=== PATIENT | female | born 1995 | race Caucasian/White ===

== ENCOUNTER 2022-01-20 18:04 | Inpatient (IN) | payer MEDICAID ==
[~2022-01-20] VITALS: Ht 154.9 cm; Wt 81.2 kg
[2022-01-20] MEDS ORDERED: CARBOPROST TROMETHAMINE 250 MCG/ML AMPUL IM PRN (19:30)
[2022-01-20] MEDS ORDERED: METHYLERGONOVINE MALEATE 0.2 MG/ML IM PRN (19:30)
[2022-01-20] MEDS ORDERED: NALOXONE HCL 0.4 MG/ML 1ML VIAL IM PRN (19:30)
[2022-01-20] MEDS ORDERED: LIDOCAINE HCL 1% 10 MG/ML 10ML VIAL INJ SCH (19:45)
[2022-01-20] MEDS ORDERED: DEXT 5%/LR + PITOCIN 20UNITS/L 1,000 ML IV SCH (20:00)
[2022-01-20] MEDS ORDERED: MISOPROSTOL 100MCG TABLET VG SCH (20:00)
[2022-01-20 20:20] LABS: CLARITY URINE CLEAR (CLEAR); COLOR URINE YELLOW (YELLOW); KETONES URINE NEGATIVE (NEGATIVE); LEUKOCYTE ESTERASE URINE 2+ (NEGATIVE); NITRITE URINE NEGATIVE (NEGATIVE); OCCULT BLOOD URINE 1+ (NEGATIVE); PH URINE 6.5 (4.5-8.0); PROTEIN URINE NEGATIVE (NEGATIVE); SPECIFIC GRAVITY URINE 1.007 (1.005-1.030); UROBILINOGEN URINE 0.2 E.U./dL (0.2-1.0)
[2022-01-20 20:20] LABS: BASOPHILS % 0.3 % (0.0-2.0); EOSINOPHILS % 0.3 % (0.0-5.0); HEMATOCRIT. 34.7 % (36.0-48.0); HEMOGLOBIN. 11.8 g/dL (12.0-16.0); LYMPHOCYTES % 11.6 % (20.0-50.0); MEAN CORPUSCULAR HEMOGLOBIN 29.8 pg (28.0-32.0); MEAN CORPUSCULAR VOLUME 87.8 fL (81.0-99.0); MEAN PLATELET VOLUME 9.7 fl (7.4-10.4); MONOCYTES % 7.5 % (2.0-8.0); NEUTROPHILS % 80.3 % (40.0-76.0); PLATELET 228 x1000/uL (130-400); RED BLOOD CELL COUNT 3.95 mill/uL (4.2-5.4); RED CELL DISTRIBUTION WIDTH 14.9 % (11.6-14.6)
[2022-01-20 20:31] LABS: INR 0.9; PARTIAL THROMBOPLASTIN TIME 26.3 sec (23.4-31.0); PROTHROMBIN TIME 9.7 sec (9.6-11.0)
[2022-01-20 20:34] LABS: *AMPHETAMINES SCREEN URINE NEGATIVE (NEGATIVE); *BARBITURATES SCREEN URINE NEGATIVE (NEGATIVE); *BENZODIAZEPINES SCREEN URINE NEGATIVE (NEGATIVE); *COCAINE SCREEN URINE NEGATIVE (NEGATIVE)
[2022-01-20 20:35] LABS: CANNABINOID URINE SCREEN NEGATIVE (NEGATIVE); METHADONE URINE SCREEN NEGATIVE (NEGATIVE); OPIATES URINE SCREEN NEGATIVE (NEGATIVE); PHENCYCLIDINE URINE SCREEN NEGATIVE (NEGATIVE)
[2022-01-20] MEDS: CLINDAMYCIN IN 0.9 % SOD CHLOR 50 ML IV SCH (20:53)
[2022-01-20 20:59] LABS: HEPATITIS B SURFACE ANTIGEN NEGATIVE
[2022-01-20] MEDS: LACTATED RINGERS 1,000 ML IV SCH ×3 (21:14→22:22)
[2022-01-20] MEDS ORDERED: ROPIVACAINE HCL/PF 100ML 100 ML INFIL NR (21:15)
[2022-01-20] MEDS ORDERED: ROPIVACAINE HCL/PF 100ML 100 ML ONE (21:29)
[2022-01-21] MEDS: CLINDAMYCIN IN 0.9 % SOD CHLOR 50 ML IV SCH (04:58)
[2022-01-21] MEDS ORDERED: FENTANYL CITRATE/PF 50MCG/ML 2ML VIAL ONE ×2 (06:40→10:02)
[2022-01-21] MEDS ORDERED: LIDOCAINE HCL 2%/EPINEPHRINE 1:100,000 20 ML VIAL INFIL ONE (07:07)
[2022-01-21] MEDS ORDERED: MORPHINE SULFATE/PF 1MG/ML 10ML AMP ONE (10:02)
[2022-01-21] MEDS ORDERED: OXYTOCIN 10 UNITS/ML 1ML ONE (10:11)
[2022-01-21] MEDS ORDERED: MIDAZOLAM HCL 2 MG/2 ML VIAL ONE (10:23)
[2022-01-21] MEDS ORDERED: PHENYLEPHRINE HCL 10 MG/ML 1ML (IV VIAL) IV ONE (10:24)
[2022-01-21] MEDS ORDERED: KETOROLAC 60MG/2ML VIAL IM ONE (10:39)
[2022-01-21] MEDS ORDERED: DIPHENHYDRAMINE 50MG/ML VIAL ONE (10:39)
[2022-01-21] MEDS ORDERED: DIPHENHYDRAMINE 50MG/ML VIAL IV PRN (11:15)
[2022-01-21] MEDS ORDERED: NALOXONE HCL 0.4 MG/ML 1ML VIAL IV PRN (11:15)
[2022-01-21] MEDS ORDERED: BUTORPHANOL TARTRATE 2 MG/ML VIAL IV PRN (11:15)
[2022-01-21] MEDS ORDERED: DIPHENHYDRAMINE 25MG CAPSULE PO PRN (11:30)
[2022-01-21] MEDS ORDERED: LANOLIN OINT 7GM TUBE TOP PRN (11:30)
[2022-01-21] MEDS ORDERED: ONDANSETRON HCL 4MG/2ML INJ IV PRN (11:30)
[2022-01-21] MEDS ORDERED: BISACODYL 10MG SUPP PR PRN (11:30)
[2022-01-21] MEDS ORDERED: IBUPROFEN 400MG TABLET PO PRN (11:30)
[2022-01-21] MEDS ORDERED: ACETAMINOPHEN WITH CODEINE 300/30MG TABLET PO PRN (11:30)
[2022-01-21] MEDS ORDERED: HEMORRHOIDAL SUPP PR PRN (11:30)
[2022-01-21] MEDS ORDERED: RHO(D) IMMUNE GLOBULIN 300 MCG/SYR IM PRN (11:30)
[2022-01-21] MEDS: DEXT 5%/LR + PITOCIN 20UNITS/L 1,000 ML IV SCH ×2 (12:57→20:52)
[2022-01-21 13:30] VITALS: BP 101/57
[2022-01-21 15:27] VITALS: BP 93/57
[2022-01-21] MEDS: SIMETHICONE 80MG TABLET CHEW PO SCH ×2 (17:44→22:22)
[2022-01-21] MEDS: MAGNESIUM/ALUMINUM HYDROXIDE/SIMETHICONE 30ML UDC PO SCH (17:44)
[2022-01-21] MEDS: KETOROLAC 30MG/ML VIAL IV SCH ×2 (17:45→23:26)
[2022-01-21 20:00] VITALS: BP 91/53
[2022-01-21 23:30] VITALS: BP 101/55
[2022-01-22 04:20] VITALS: BP 106/61
[2022-01-22] MEDS ORDERED: KETOROLAC 30MG/ML VIAL IV SCH (05:22)
[2022-01-22] MEDS: KETOROLAC 30MG/ML VIAL IV SCH (05:28)
[2022-01-22 07:38] LABS: BASOPHILS % 0.1 % (0.0-2.0); EOSINOPHILS % 0.4 % (0.0-5.0); HEMATOCRIT. 29.8 % (36.0-48.0); HEMOGLOBIN. 10.2 g/dL (12.0-16.0); LYMPHOCYTES % 7.3 % (20.0-50.0); MEAN CORPUSCULAR HEMOGLOBIN 30.2 pg (28.0-32.0); MEAN CORPUSCULAR VOLUME 88.7 fL (81.0-99.0); MEAN PLATELET VOLUME 9.2 fl (7.4-10.4); MONOCYTES % 7.7 % (2.0-8.0); NEUTROPHILS % 84.5 % (40.0-76.0); PLATELET 167 x1000/uL (130-400); RED BLOOD CELL COUNT 3.36 mill/uL (4.2-5.4); RED CELL DISTRIBUTION WIDTH 14.8 % (11.6-14.6)
[2022-01-22 08:00] VITALS: BP 83/50
[2022-01-22] MEDS: MAGNESIUM/ALUMINUM HYDROXIDE/SIMETHICONE 30ML UDC PO SCH ×4 (09:03→21:15)
[2022-01-22] MEDS: SIMETHICONE 80MG TABLET CHEW PO SCH ×4 (09:04→21:15)
[2022-01-22] MEDS: FERROUS SULFATE 325MG TABLET PO SCH ×3 (09:04→18:01)
[2022-01-22] MEDS: PRENATAL VIT/FE FUMARATE/FA TABLET PO SCH (09:04)
[2022-01-22] MEDS: IBUPROFEN 800MG TABLET PO PRN ×2 (13:06→20:00)
[2022-01-22 16:00] VITALS: BP 102/56
[2022-01-22 19:30] VITALS: BP 95/50
[2022-01-22] MEDS: DOCUSATE SODIUM 100MG CAPSULE PO SCH (21:15)
[2022-01-23 04:00] VITALS: BP 100/61
[2022-01-23] MEDS: IBUPROFEN 800MG TABLET PO PRN ×2 (04:40→17:00)
[2022-01-23 08:00] VITALS: BP 100/64
[2022-01-23] MEDS: SIMETHICONE 80MG TABLET CHEW PO SCH ×4 (08:00→21:21)
[2022-01-23] MEDS: FERROUS SULFATE 325MG TABLET PO SCH ×3 (09:34→17:00)
[2022-01-23] MEDS: PRENATAL VIT/FE FUMARATE/FA TABLET PO SCH (09:34)
[2022-01-23] MEDS: MAGNESIUM/ALUMINUM HYDROXIDE/SIMETHICONE 30ML UDC PO SCH ×4 (09:34→21:21)
[2022-01-23 15:45] VITALS: BP 105/62
[2022-01-23 19:30] VITALS: BP 105/67
[2022-01-23] MEDS: DOCUSATE SODIUM 100MG CAPSULE PO SCH (21:21)
[2022-01-24 04:00] VITALS: BP 98/57
[2022-01-24] MEDS: IBUPROFEN 800MG TABLET PO PRN (04:18)
[2022-01-24] MEDS: MAGNESIUM/ALUMINUM HYDROXIDE/SIMETHICONE 30ML UDC PO SCH (07:30)
[2022-01-24] MEDS: FERROUS SULFATE 325MG TABLET PO SCH (07:30)
[2022-01-24 07:33] VITALS: BP 98/62
[2022-01-24] MEDS: SIMETHICONE 80MG TABLET CHEW PO SCH (07:42)
[2022-01-24] MEDS: PRENATAL VIT/FE FUMARATE/FA TABLET PO SCH (09:00)
[2022-01-24] MEDS ORDERED: IBUP-2030 MT (09:03)
== END 2022-01-24 11:15 | disposition home or self-care (01) | DRG 540 ==
LOC: OBSVTOIN 18:04 → 8 EST LDRP 18:04 → 8EST 01-21 13:43
PROVIDERS: ADMIT Obstetrics & Gynecology; ATTEND Obstetrics & Gynecology
PROC: 10D00Z1 Extraction of Products of Conception, Low, Open Approach (ICD-10-PCS; principal; 2022-01-21)
DX: O48.0 Post-term pregnancy (principal); D62 Acute posthemorrhagic anemia; O90.81 Anemia of the puerperium; Z20.822 Contact with and (suspected) exposure to COVID-19; Z88.0 Allergy status to penicillin; Z37.0 Single live birth; Z3A.40 40 weeks gestation of pregnancy
CPT/HCPCS: 36415; 76805; 76818; 80305; 81003; 85025; 86592; 86703; 86762; 86850; 86900; 87340; 87426; 88307; 99281; G0378; J1200; J1885; J2250; J2274; J2370; J2590; J2795; J3010; J3490; J7120; A4315